=== PATIENT | male | born 1985 | race Caucasian/White ===

== ENCOUNTER 2022-09-16 20:18 | Emergency (ER) | payer OTHER ==
[~2022-09-16] VITALS: Ht 180.3 cm; Wt 80.7 kg
[2022-09-16 20:29] VITALS: BP_SYST 154
--- NOTE | 2022-09-16 20:32 | NUR ---
PER PATIENT, PATIENT HAS BEEN FEELING ANXIOUS AND SEES PMD FOR THIS AND STATES IT'S AN EMERGENCY TONIGHT BECAUSE HE HAS NOT BEEN ABLE TO SLEEP TONIGHT.
--- NOTE | 2022-09-16 20:35 | NUR ---
PATIENT BROUGHT TO [facility] FOR EVAL.
--- NOTE | 2022-09-16 20:40 | NUR ---
Received report from KAMALJIT Calvert; assuming care of patient at this time.
--- NOTE | 2022-09-16 20:42 | NUR ---
Patient presents to ED from home with c/o anxiety. Patient reports pain 0/10 at this time. Patient A/Ox4, VSS, ambulatory, resp even and unlabored. Patient states "I think I'm okay, I just think I freaked out a little bit cause I have anxiety. I just wanted to make sure I'm okay." Nad noted at this time. ER MD Hooper notified.
--- NOTE | 2022-09-16 20:43 | NUR ---
MARY MULLINS Kwaw at bedside.
[2022-09-16] MEDS ORDERED: LORazepam 2 MG/ML VIAL IM ONE (20:45)
--- NOTE | 2022-09-16 20:50 | NUR ---
Patient refusing Ativan IM at this time. Patient states "I dont want that medication, I honestly think I'm okay. I just had bad anxiety, but I dont need medication right now." ER MD Hooper notified; no new order given.
[2022-09-16 21:16] VITALS: BP_SYST 154
--- NOTE | 2022-09-16 21:16 | NUR ---
Patient given written and verbal discharge instructions and verbalizes understanding. ER MD discussed with patient the results and treatment provided. Patient in stable condition. ID arm band removed. Patient educated on pain management and to follow up with PMD. Pain Scale 0/10. Opportunity for questions provided and answered. Patient A/Ox4, VSS, ambulatory, resp even and unlabored. Patient in stable condition upon discharge.
== END 2022-09-16 21:16 | disposition home or self-care (01) ==
LOC: SED 20:18
DX: F41.9 Anxiety disorder, unspecified (principal); R45.1 Restlessness and agitation; R07.9 Chest pain, unspecified; Z79.899 Other long term (current) drug therapy
CPT/HCPCS: 99282; J2060

== ENCOUNTER 2022-10-16 15:06 | Emergency (ER) | payer OTHER ==
[~2022-10-16] VITALS: Ht 180.3 cm; Wt 80.7 kg
[2022-10-16 15:38] VITALS: BP_SYST 135
--- NOTE | 2022-10-16 15:46 | NUR ---
PT STATES THAT HE MADE AN APPT WITH HIS PCP AND WANTS TO LEAVE. ROSA
== END 2022-10-16 15:46 | disposition left against medical advice (07) ==
LOC: SED 15:06
DX: F41.9 Anxiety disorder, unspecified (principal); Z53.21 Procedure and treatment not carried out due to patient leaving prior to being seen by health care provider